=== PATIENT | female | born 1935 | race Caucasian/White ===

== ENCOUNTER 2018-12-14 12:19 | Emergency (ER) | payer MEDICARE, OTHER ==
[~2018-12-14] VITALS: Ht 162.6 cm; Wt 75.3 kg
[~2018-12-14 12:19] MED LIST: BYSTOLIC5 MG PO; CIPRO500 MG PO; METRONIDAZOLE500 MG PO; NIFEDIPINE ER30 M1 PO; NORCO 5-325 TA1 EACH PO; PREVACID15 M1 PO; SENOKOT8.6 MG PO; SYNTHROID88 MCG PO; VANCOCIN HCL250 MG PO
--- OUTSIDE RECORDS SUMMARY | 2018-12-14 12:23 | XMS REPORT | Clinical Summary ---
Author Author [facility] Address Unknown Phone Unavailable Care Team Providers Care Adventure Education Teacher Name Role Phone PCP Unavailable Allergies Not on File Medications Not on file Active Problems Not on file Social History Date Tobacco Use Types Packs/Day Years Used Never Assessed Sex Assigned at Date Recorded Not on file Industry Job Start Date Occupation Not on file Not on file Not on file Travel End Travel History Travel Start No recent travel history available. Last Filed Vital Signs Not on file Plan of Treatment Not on file Results Not on fileafter 12/13/2017 Insurance Payer Benefit Subscriber ID Type Phone Address Plan / Group MEDICARE MEDICARE A xxxxxxxxxx Medicare B AETNA - [place] CARE AETNA TRS xxxxxxxxxx HMO/POS RETIREES
--- OUTSIDE RECORDS SUMMARY | 2018-12-14 12:23 | XMS REPORT ---
[facility] Address Unknown Phone Unavailable Care Team Providers Care Channeling Machine Runner Name Role Phone Jeferson LEIJA Unavailable Unavailable Problems This patient has no known problems. Allergies, Adverse Reactions, Alerts This patient has no known allergies or adverse reactions. Medications This patient has no known medications. Results Test Description Test Time Test Comments Text Results Atomic Results Result Comments CT ABDOMEN/PELVIS W [place] [address] Patient Name: HARRIS STUBBS MR #: [id number] : 1935 Age/Sex: 82/F Req #: [id number] [facility] Physician: Ordered by: ADRIANE LEIJA MD Report #: [id number] Location: ER Room/Bed: Procedure: [id number] CT/CT ABDOMEN/PELVIS W Exam Date: 03/28/17 Exam Time: 1125 REPORT STATUS: Signed PROCEDURE: CT ABDOMEN AND PELVIS WITH CONTRAST COMPARISON: None. INDICATIONS: Lower quadrant pain; constipation TECHNIQUE: Routine protocol Volumetric CT abdomen and pelvis after administration of 100 mL Isovue-370 intravenous contrast and positive enteric contrast. Multiplanar reformatted images. DLP: 486.16 FINDINGS: Clear lung bases. No pleural effusions. Mild cardiomegaly without pericardial effusion. Liver: Mid clavicular craniocaudal span 16.5 cm. Otherwise, normal. Gallbladder: Normal Pancreas: Normal Spleen: Normal Adrenal glands: 1.5 cm left adrenal nodule (attenuation 21 Hounsfield units). Otherwise, normal bilaterally. Kidneys: Trace right pelviectasis. Otherwise, normal bilaterally. Urinary bladder: Normal Uterus and adnexa: Normal Bowel: Normal caliber. Mod erate to large stool volume throughout the colon without evidence of obstruction. Sigmoid diverticulosis. Very trace inflammation about the proximal sigmoid (image 62, series 2). Peritoneum: Normal Vascular tear: Trace scattered sye-yugk-bwjkoiuu atherosclerosis. Normal caliber. Lymph nodes: Normal Skeleton: Intact. L5-S1 degenerative disc disease. L5 vertebral body hemangioma. Mild bilateral facet arthropathy. Soft tissues: Normal CONCLUSION: 1. Moderate to large colonic stool volume in keeping with reported constipation. No evidence of obstruction. 2. Very trace, questionable sigmoid diverticular inflammation which may represent early diverticulitis in the appropriate context. There is diffuse sigmoid diverticulosis. 3. Indeterminate 1.5 cm left adrenal nodule. This is statistically likely an adenoma. Nonemergent adrenal protocol CT abdomen recommended for further characterization. Dictated by: Collins Hamilton M.D. on 03/28/2017 at 12:11 Electronically approved by: Collins Hamilton M.D. on 03/28/2017 at 12:11 Dictated By: COLLINS HAMILTON MD 1211 Transcribed By: DUSTY on 03/28/17 1211 COPY TO: ADRIANE LEIJA MD
[2018-12-14 13:37] LABS: BASOPHILS % 0.6 % (0.0-1.0); EOSINOPHILS % 0.8 % (0.0-6.0); HEMATOCRIT 37.7 % (34.2-44.1); HEMOGLOBIN 12.7 g/dL (12.0-16.0); LYMPHOCYTES # (AUTO) 1.1 (1.0-3.2); LYMPHOCYTES % 20.9 % (18.0-39.1); MEAN CORPUSCULAR HEMOGLOBIN 29.3 pg (28-32); MEAN CORPUSCULAR HGB CONC 33.7 g/dL (31-35); MEAN CORPUSCULAR VOLUME 86.9 fL (81-99); MONOCYTES # (AUTO) 0.4 (0.2-0.8); MONOCYTES % 7.6 % (4.4-11.3); NEUTROPHILS # (AUTO) 3.6 (2.1-6.9); NEUTROPHILS % 69.9 % (38.7-80.0); PLATELET COUNT 175 x10e3/uL (140-360); RED BLOOD COUNT 4.34 x10e6/uL (3.6-5.1); RED CELL DISTRIBUTION WIDTH 13.2 % (11.7-14.4)
[2018-12-14 13:41] LABS: BILIRUBIN,URINE NEGATIVE (NEGATIVE); CLARITY,URINE SL CLOUDY (CLEAR); COLOR,URINE YELLOW (YELLOW); KETONES,URINE NEGATIVE (NEGATIVE); LEUKOCYTE ESTERASE ,URINE NEGATIVE (NEGATIVE); NITRITE,URINE NEGATIVE (NEGATIVE); PROTEIN,URINE DIPSTICK NEGATIVE (NEGATIVE); URINE UROBILINOGEN 0.2 mg/dL (0.2 - 1)
[2018-12-14 13:50] LABS: INR 0.92; PARTIAL THROMBOPLASTIN TIME 27.6 seconds (23.8-35.5); PROTHROMBIN TIME 12.8 seconds (11.9-14.5)
[2018-12-14 13:57] LABS: EPITHELIAL CELLS,URINE FEW /LPF; RBC,URINE 0-5 /HPF (0-5); RENAL EPITHELIAL CELLS,URINE RARE; TRANSITIONAL EPI CELLS,URINE RARE
[2018-12-14 14:00] LABS: ALBUMIN 3.4 g/dL (3.5-5.0); ALBUMIN/GLOBULIN RATIO 0.9 (0.8-2.0); ANION GAP 12.9 mmol/L (8-16); CALCIUM 9.1 mg/dL (8.4-10.2); CREATININE, SERUM 0.92 mg/dL (0.57-1.11); POTASSIUM 3.9 mmol/L (3.5-5.1)
[2018-12-14 14:06] LABS: CREATINE KINASE MB 2.2 ng/mL (0-5.0)
--- NOTE | 2018-12-14 14:47 | Diagnostic Imaging Report ---
EXAMINATION: CHEST SINGLE (PORTABLE) INDICATION: Palpitations COMPARISON: None FINDINGS: TUBES and LINES: EKG leads overlie the thorax LUNGS: The lungs are moderately inflated. There is perihilar fullness and indistinctness of the pulmonary vasculature. PLEURA: No pleural effusion or pneumothorax. HEART AND MEDIASTINUM: The heart is enlarged. Atherosclerotic calcifications involve the thoracic aorta BONES AND SOFT TISSUES: No acute fracture or dislocation. UPPER ABDOMEN: No free air under the diaphragm. IMPRESSION: Cardiomegaly and mild pulmonary interstitial edema. Signed by: Erwin Patterson MD on 12/14/2018 2:44 PM
[2018-12-14] MEDS ORDERED: FUROSEMIDE INJ 10 MG/ML 2 ML VIAL IV ONE (15:15)
[2018-12-14 15:45] VITALS: BP 189/87
[2018-12-14] MEDS ORDERED: METOPROLOL TARTRATE INJ 1 MG/ML VIAL IV ONE (15:45)
== END 2018-12-14 16:12 | disposition home or self-care (01) ==
LOC: ER 12:19
DX: R00.2 Palpitations (principal); I10 Essential (primary) hypertension; E03.9 Hypothyroidism, unspecified
CPT/HCPCS: 36415; 71045; 80053; 81001; 82550; 82553; 83880; 84484; 85025; 85610; 85730; 87086; 93005; 99284; J1940

== ENCOUNTER → 2019-05-27 | Outpatient (CLI) | payer MEDICARE ==
--- NOTE | 2019-06-11 10:03 | Diagnostic Imaging Report ---
#[id number] - [id number] #BILATERAL DIGITAL SCREENING MAMMOGRAM WITH CAD: 05/27/2019 CLINICAL: Routine screening. No prior exams were available for comparison. There are scattered fibroglandular elements in both breasts. Current study was also evaluated with a Computer Aided Detection (CAD) system. There are benign vascular calcifications and calcifications in both breasts. There also are benign intramammary nodes in the left breast. No significant masses, calcifications, or other findings are seen in either breast. IMPRESSION: BENIGN There is no mammographic evidence of malignancy. A 1 year screening mammogram is recommended. The patient will be notified by letter of the results. GABBY mora/rio:06/10/2019 15:32:34 Business Solutions Architect: Valerie ALVARES)(Alyson), [facility] letter sent: Normal Exam Mammogram BI-RADS: 2 Benign
== END ==
LOC: MAMMO 11:57
PROVIDERS: ATTEND Obstetrics & Gynecology
DX: Z12.31 Encounter for screening mammogram for malignant neoplasm of breast (principal)
CPT/HCPCS: 77067

== ENCOUNTER 2020-12-04 13:18 | Emergency (ER) | payer MEDICARE, OTHER ==
[~2020-12-04] VITALS: Ht 162.6 cm; Wt 75.3 kg
[2020-12-04] MEDS: HYDRALAZINE HCL 20 MG/ML VIAL IV PRN ×3 (16:00→19:26)
[2020-12-04 16:39] LABS: BASOPHILS # (AUTO) 0.1 (0.0-0.1); EOSINOPHILS # (AUTO) 0.1 (0.0-0.4); EOSINOPHILS % 1.4 % (0.0-6.0); HEMATOCRIT 42.7 % (34.2-44.1); HEMOGLOBIN 13.8 g/dL (12.0-16.0); LYMPHOCYTES # (AUTO) 0.9 (1.0-3.2); LYMPHOCYTES % 18.4 % (18.0-39.1); MEAN CORPUSCULAR HEMOGLOBIN 29.6 pg (28-32); MEAN CORPUSCULAR HGB CONC 32.3 g/dL (31-35); MEAN CORPUSCULAR VOLUME 91.4 fL (81-99); MONOCYTES # (AUTO) 0.4 (0.2-0.8); MONOCYTES % 6.9 % (4.4-11.3); NEUTROPHILS # (AUTO) 3.7 (2.1-6.9); NEUTROPHILS % 71.9 % (38.7-80.0); PLATELET COUNT 189 x10e3/uL (140-360); RED BLOOD COUNT 4.67 x10e6/uL (3.6-5.1); RED CELL DISTRIBUTION WIDTH 13.1 % (11.7-14.4)
[2020-12-04 16:45] LABS: CLARITY,URINE SL CLOUDY (CLEAR); COLOR,URINE YELLOW (YELLOW)
[2020-12-04 16:46] LABS: KETONES,URINE NEGATIVE (NEGATIVE); LEUKOCYTE ESTERASE ,URINE NEGATIVE (NEGATIVE); NITRITE,URINE NEGATIVE (NEGATIVE); PROTEIN,URINE DIPSTICK NEGATIVE (NEGATIVE); URINE UROBILINOGEN 0.2 mg/dL (0.2 - 1)
[2020-12-04 16:53] LABS: RBC,URINE 0-5 /HPF (0-5)
[2020-12-04 17:34] LABS: ALBUMIN 3.3 g/dL (3.5-5.0); ALBUMIN/GLOBULIN RATIO 0.9 (0.8-2.0); ANION GAP 13.4 mmol/L (8-16); CALCIUM 8.8 mg/dL (8.4-10.2); CREATININE, SERUM 0.74 mg/dL (0.57-1.11); POTASSIUM 3.4 mmol/L (3.5-5.1)
[2020-12-04 20:24] VITALS: BP 154/62
== END 2020-12-04 20:10 | disposition short-term general hospital (02) ==
LOC: ER 13:25
DX: S06.6X0A Traumatic subarachnoid hemorrhage without loss of consciousness, initial encounter (principal); W18.30XA Fall on same level, unspecified, initial encounter; Y92.019 Unspecified place in single-family (private) house as the place of occurrence of the external cause; I10 Essential (primary) hypertension; E03.9 Hypothyroidism, unspecified
CPT/HCPCS: 36415; 70450; 71045; 80053; 81001; 84484; 85025; 93005; 99284; J0360; U0002